=== PATIENT | female | born 1995 | race Caucasian/White ===

== ENCOUNTER 2021-04-13 10:02 | Outpatient (RCR) | payer OTHER, SELFPAY ==
[2021-04-13 11:08] VITALS: BP 123/82; PULSE 82
== END 2021-04-19 11:47 | disposition home or self-care (01) ==
LOC: ANHOBOP 10:02
PROVIDERS: Visit Provider Obstetrics & Gynecology
DX: O26.893 Other specified pregnancy related conditions, third trimester (principal); R03.0 Elevated blood-pressure reading, without diagnosis of hypertension; Z3A.39 39 weeks gestation of pregnancy
CPT/HCPCS: 59025

== ENCOUNTER 2021-04-14 07:25 | Inpatient (IN) | payer OTHER, SELFPAY ==
[2021-04-14] VITALS (173 sets, daily range): BP systolic 53–146; BP diastolic 27–99; PULSE 25–183; RESP 20; TEMP 36.3–36.8; O2SAT 78–100; BMI 32.6
--- NOTE | 2021-04-14 07:52 | PM.IMHP ---
H&P: HPI History of Present Illness Date/Time: 04/14/21 07:52 25-year-old 1 para 0 whose last menstrual period was 07/17/2020, EDC is 04/20/2021, confirmed by 10 week ultrasound presents at term in active labor. She is negative for group B strep in her has been uncomplicated. Active labor is noted Chief Complaint: labor Review of Systems Review of Systems: All systems reviewed & are unremarkable except as noted in HPI and below PMFSH Family History Family History Grandparent MDS (myelodysplastic syndrome) FHx: bowel obstruction Hypertension Cerebrovascular accident Father FHx: bowel obstruction Mother Deficiency of other vitamins Deficiency of other specified B group vitamins Anemia Social History Social History Substance use: never Spiritual care concerns: No Meds Home Medications and Allergies Home Medications Medication Instructions Recorded Confirmed Type prenat.vits,coleen,cil-ntii-grkbo 1 tablet PO DAILY 03/21/21 03/21/21 History [ #2] Allergies Allergy/AdvReac Type Severity Reaction Status Date / Time No Known Allergies Allergy Verified 03/21/21 14:37 Exam Const: General: no acute distress Eyes: General: appearance normal, both eyes and all related structures Neck: Neck: supple and no JVD Thyroid: thyroid normal Resp: Effort & Inspection: normal respiratory effort Auscultation: clear to auscultation bilaterally Cardio: Rate: regular rate Rhythm: regular rhythm GI: Inspection: non-distended GI Palp: Yes Soft to palpation, No Tenderness to palpation present (GI) and No Guarding due to palpation present (GI) Auscultation: normal bowel sounds : External Female Exam: normal external appearance Speculum Exam - Vagina: normal appearance of the vagina Speculum Exam - Cervix: normal appearance of the cervix ( cervix 5/90/1. AROM clear. FHTs reassuring.) Skin: General skin exam: no rashes or lesions noted Extrem: General: normal to inspection and no edema Psych: Mental Status: mental status grossly normal Affect: normal affect Assessment and Plan Additional Plan Impression: Term in active labor Plan: Spontaneous vaginal delivery is expected. She has an epidural candidate.
[2021-04-14 08:16] LABS: Basophils Percent Auto 0.2 % (0.2-1.2); Eosinophils Percent Auto 0.2 % (0-4.4); Hematocrit 34.5 % (37.0-47.0); Hemoglobin 10.9 g/dL (12.0-15.0); Immature Granulocyte Absolute 0.06 K/mm3 (0.00-0.031); Immature Granulocyte Percent A 0.6 % (0-0.5); Lymphocytes Absolute Auto 1.65 K/mm3 (0.9-3.2); Lymphocytes Percent Auto 17.3 % (18.3-44.2); Mean Corpuscular HGB Conc 31.6 g/dl (32-36); Mean Corpuscular Hemoglobin 28.5 pg (26-34); Mean Corpuscular Volume 90.1 fl (80-100); Mean Platelet Volume 10.1 fl (7.4-10.4); Monocytes Absolute Auto 0.6 K/mm3 (0.1-0.6); Neutrophils Absolute Auto 7.2 K/mm3 (1.3-6.7); Neutrophils Percent Auto 75.7 % (45.5-73.1); Platelet Count Result 240 k/mm3 (150-375); Red Blood Count 3.83 M/mm3 (4.2-5.4); Red Cell Distribution Width 13.5 % (11.5-14.5); White Blood Count 9.5 K/mm3 (4.5-10.0)
[2021-04-14] MEDS: LACTATED RINGERS 1,000 ML 125 ML IV CONT ×3 (08:27→12:06)
--- NOTE | 2021-04-14 09:00 | WPDANESEPP ---
Anes - Eval Pre Procedure Procedure: labor epidural Date/Time: 04/14/21 09:00 Surgeon: radha Preop Diagnosis: pain during labor Pre Op Diagnosis: contractions Patient Data Age: 25 Gender: F Height: 1.73 m Weight: 97.5 kg Last Vital Signs Pulse 92 04/14/21 08:30 BP 136/85 04/14/21 08:30 Allergies Allergy/AdvReac Type Severity Reaction Status Date / Time No Known Allergies Allergy Verified 03/21/21 14:37 Home Medications Medication Instructions Recorded Confirmed Type prenat.vits,coleen,pkf-angz-mpahb 1 tablet PO DAILY 03/21/21 03/21/21 History [ #2] Laboratory Tests 04/14/21 04/14/21 08:08 08:08 WBC 9.5 K/mm3 K/mm3 (4.5-10.0) RBC 3.83 M/mm3 L M/mm3 (4.2-5.4) Hgb 10.9 g/dL L g/dL (12.0-15.0) Hct 34.5 % L % (37.0-47.0) MCV 90.1 fl fl (80-100) MCH 28.5 pg pg (26-34) MCHC 31.6 g/dl L g/dl (32-36) RDW 13.5 % % (11.5-14.5) Plt Count 240 k/mm3 k/mm3 (150-375) MPV 10.1 fl fl (7.4-10.4) Immature Gran % (Auto) 0.6 % H % (0-0.5) Neut % (Auto) 75.7 % H % (45.5-73.1) Lymph % (Auto) 17.3 % L % (18.3-44.2) [place] % (Auto) 6.0 % % (2.6-8.5) Eos % (Auto) 0.2 % % (0-4.4) Baso % (Auto) 0.2 % % (0.2-1.2) Lymph # (Auto) 1.65 K/mm3 K/mm3 (0.9-3.2) [place] # (Auto) 0.6 K/mm3 K/mm3 (0.1-0.6) Eos # (Auto) 0.0 K/mm3 K/mm3 (0-0.3) Baso # (Auto) 0.0 K/mm3 K/mm3 (0.0-0.1) Abs Immat Gran (auto) 0.06 K/mm3 H K/mm3 (0.00-0.031) Absolute Neuts (auto) 7.2 K/mm3 H K/mm3 (1.3-6.7) Absolute Nucleated RBC 0.0 K/mm3 K/mm3 (0.0-0.012) Nucleated RBC % 0.0 % % (0.0-0.2) RPR Pending Patient hx anesthesia problems: none Family hx anesthesia problems: none PMFSH Past Medical History Medical History (Updated 04/14/21 @ 09:01 by Lucia Cee CRNA) IUP (intrauterine ), incidental Family History Family History Grandparent MDS (myelodysplastic syndrome) FHx: bowel obstruction Hypertension Cerebrovascular accident Father FHx: bowel obstruction Mother Deficiency of other vitamins Deficiency of other specified B group vitamins Anemia Social History Social History Substance use: never Spiritual care concerns: No Exam Day of Procedure 04/14/21 09:00
--- NOTE | 2021-04-14 09:00 | LDADM ---
This patient, Jason Russell, was admitted to Labor/Delivery/Recovery 105 on 04/14/21 at 07:25. Plans for labor, pain management and were discussed with patient. Patient/family oriented to hospital policies and general routines including ID bracelet, bed and alarms, visiting hours, pain management, procedures, bathroom and other care routines, personal items, smoking policy, room service/diet and guest tray routines, infant security routines, and visiting hours. Patient/Family are encouraged to report perceived risks to care and to ask questions if they do not understand what they are told or what they should do. See OBIX for further documentation.
--- NOTE | 2021-04-14 11:29 | PM.OBPNVD ---
OB - PN: Subj Subjective Date/time seen: 04/14/21 11:29 rn exam 6.5/fhts ok OB - PN: Obj Data Labs CBC & Chem 7: 04/14/21 08:08 Labs: Laboratory Results - last 24 hr 04/14/21 04/14/21 08:08 08:08 WBC 9.5 RBC 3.83 L Hgb 10.9 L Hct 34.5 L MCV 90.1 MCH 28.5 MCHC 31.6 L RDW 13.5 Plt Count 240 MPV 10.1 Immature Gran % (Auto) 0.6 H Neut % (Auto) 75.7 H Lymph % (Auto) 17.3 L [place] % (Auto) 6.0 Eos % (Auto) 0.2 Baso % (Auto) 0.2 Lymph # (Auto) 1.65 [place] # (Auto) 0.6 Eos # (Auto) 0.0 Baso # (Auto) 0.0 Abs Immat Gran (auto) 0.06 H Absolute Neuts (auto) 7.2 H Absolute Nucleated RBC 0.0 Nucleated RBC % 0.0 Blood Type A Positive Antibody Screen Negative OB - PN A/P Time Spent With Patient Time: Total time spent is greater than 50% in coordination of care (as documented) at patient's floor/unit and/or counseling patient:
[2021-04-14] MEDS: OXYTOCIN 30 UNITS/NS 500 ML 30 UNITS/500 ML BAG IV CONT (12:07)
--- NOTE | 2021-04-14 15:50 | P.PNOB_ITS ---
OB - PN: Subj Subjective Date/time seen: 04/14/21 15:50 Interval history: cx 9 fhts reassuring OB - PN: Obj Data Labs CBC & Chem 7: 04/14/21 08:08 Labs: Laboratory Results - last 24 hr 04/14/21 04/14/21 08:08 08:08 WBC 9.5 RBC 3.83 L Hgb 10.9 L Hct 34.5 L MCV 90.1 MCH 28.5 MCHC 31.6 L RDW 13.5 Plt Count 240 MPV 10.1 Immature Gran % (Auto) 0.6 H Neut % (Auto) 75.7 H Lymph % (Auto) 17.3 L [place] % (Auto) 6.0 Eos % (Auto) 0.2 Baso % (Auto) 0.2 Lymph # (Auto) 1.65 [place] # (Auto) 0.6 Eos # (Auto) 0.0 Baso # (Auto) 0.0 Abs Immat Gran (auto) 0.06 H Absolute Neuts (auto) 7.2 H Absolute Nucleated RBC 0.0 Nucleated RBC % 0.0 Blood Type A Positive Antibody Screen Negative OB - PN A/P Time Spent With Patient Time: Total time spent is greater than 50% in coordination of care (as documented) at patient's floor/unit and/or counseling patient:
--- NOTE | 2021-04-14 17:44 | PM.OBPRVD ---
OB - Delivery Note Procedure Delivery date: 04/14/21 Intrapartal events: None Induction method: AROM Delivery augmentation: pitocin Delivery monitor: external FHT Route of delivery: Episiotomy description: None Laceration Description: Perineal - 2nd Degree Delivery repair: vicryl Specimen: No Quantitative Blood Loss (ml): 58 Anesthesia type: Epidural Disposition: floor Baby Date of : 04/14/21 Time of : 17:32 Weeks of gestation at delivery: 40 Weight (pounds): 8 Weight (ounces): 13 presentation: vertex position: Right Occiput Anterior Placenta delivery description: Spontaneous cord vessel description: 3 Vessels score one minute: 8 score five minutes: 9
[2021-04-14] MEDS: OXYTOCIN 30 UNITS/NS 500 ML 30 UNITS/500 ML BAG 125 UNITS IV CONT (18:08)
[2021-04-14] MEDS: IBUPROFEN 600 MG TABLET PO (20:02)
[2021-04-14] MEDS: BENZOCAINE 20% AER SPR (*SP) 56 GM CAN 1 SPRAY TOPICAL (20:03)
[2021-04-14] MEDS: WITCH HAZEL 40 PADS 1 PAD TOPICAL (20:03)
--- NOTE | 2021-04-14 21:53 | OBPPTRN ---
Patient transferred to post room # via ( ). Support person present. Oriented to unit, room, information board, rooming in, admission packet and security measures. Patient verbalizes understanding.
[2021-04-15 00:30] VITALS: BP 119/69; PULSE 81; RESP 20; TEMP 36.7; O2SAT 100; O2SAT 99
[2021-04-15 04:30] VITALS: BP 124/77; PULSE 69; RESP 20; TEMP 36.7; O2SAT 100
[2021-04-15] MEDS: IBUPROFEN 600 MG TABLET PO ×3 (04:37→17:16)
[2021-04-15] MEDS: LANOLIN (LANSINOH) 7.5 GM CREAM 1 APPLIC TOPICAL ×2 (04:42→09:32)
[2021-04-15 05:46] LABS: Hematocrit 28.3 % (37.0-47.0)
--- NOTE | 2021-04-15 06:35 | P.PNOB_ITS ---
OB - PN: Subj Subjective Date/time seen: 04/15/21 06:35 Interval history: cx 9 fhts reassuring Patient comments: no complaints and pain well controlled [place] baby status: doing well and nursing well OB - PN: Obj Data Labs CBC & Chem 7: 04/15/21 04:36 Labs: Laboratory Results - last 24 hr 04/14/21 04/14/21 04/15/21 08:08 08:08 04:36 WBC 9.5 RBC 3.83 L Hgb 10.9 L 9.0 L Hct 34.5 L 28.3 L MCV 90.1 MCH 28.5 MCHC 31.6 L RDW 13.5 Plt Count 240 MPV 10.1 Immature Gran % (Auto) 0.6 H Neut % (Auto) 75.7 H Lymph % (Auto) 17.3 L [place] % (Auto) 6.0 Eos % (Auto) 0.2 Baso % (Auto) 0.2 Lymph # (Auto) 1.65 [place] # (Auto) 0.6 Eos # (Auto) 0.0 Baso # (Auto) 0.0 Abs Immat Gran (auto) 0.06 H Absolute Neuts (auto) 7.2 H Absolute Nucleated RBC 0.0 Nucleated RBC % 0.0 Blood Type A Positive Antibody Screen Negative OB - PN A/P Plan day: 1 Plan: routine care Time Spent With Patient Time: Total time spent is greater than 50% in coordination of care (as documented) at patient's floor/unit and/or counseling patient: Time with patient: less than 15 minutes Review of Systems Review of Systems: All systems reviewed & are unremarkable except as noted in HPI and below Exam Const: General: no acute distress Eyes: General: appearance normal, both eyes and all related structures Neck: Neck: supple and no JVD Thyroid: thyroid normal Resp: Effort & Inspection: normal respiratory effort Auscultation: clear to auscultation bilaterally Cardio: Rate: regular rate Rhythm: regular rhythm GI: Inspection: non-distended GI Palp: Yes Soft to palpation, No Tenderness to palpation present (GI) and No Guarding due to palpation present (GI) Auscultation: normal bowel sounds : General: Yes bladder normal to palpation External Female Exam: normal external appearance Speculum Exam - Vagina: normal vaginal discharge and No vaginal bleeding Speculum Exam - Cervix: nontender Bimanual exam- vagina & uterus: bladder normal to palpation and No Cervical tenderness present OB/external & speculum: No vaginal bleeding Skin: General skin exam: no rashes or lesions noted Extrem: General: normal to inspection and no edema Psych: Mental Status: mental status grossly normal Affect: normal affect
[2021-04-15 06:46] LABS: Rapid Plasma Reagin Non-Reactive (NonReactive)
[2021-04-15 08:00] VITALS: BP 131/84; PULSE 63; RESP 18; TEMP 36.2; O2SAT 100
--- NOTE | 2021-04-15 09:30 | PC.NURSE ---
RN requested assist with feeding. Consulted with patient, mother reports has been sleepy at breast. Mother has been reporting 20 minutes for some feedings, when asked was at breast 20 minutes with maybe 10 minutes of nursing. Reviewed infant feeding cues, frequencies, duration of feedings, feeding elimination flow sheet, and signs of adequate intake. Demonstrated stimulation techniques to wake for feeding. Assisted with to breast. Reviewed positioning/alignment in football, holding breast in ?C? hold and guided asymmetrical latch on. Infant was unable latch correctly. Several attempts made. Offered and explained nipple shield, mother would like to attempt with shield. Instructions given on application and cleaning of shield. Discussed nipple shield precautions and possible complications. Patient able to return demonstration on proper application of shield. Discussed the need to initiate pumping if continues to nurse with the shield. Patient verbalizes understanding. With shield in place infant was able to latch correctly. He remained sleepy with bursts of weak suckling noted. Reviewed effective nursing vs ineffective nursing. Discussed this feeding was not effective nursing. Mother states infant has mostly nurse this way since . Primary RN is comfortable with blood glucose and waiting for next feeding to see if infant will wake. Reviewed if does not have an effective feeding, mother should initiate pumping to stimulate milk supply and should receive supplementation of 15-20 mls. Instructed feeding should be initiated three hours from start of last feeding or if feeding cues are noted before. Mother voiced understanding of information shared.
[2021-04-15] MEDS: MULTIVIT/MIN/PREN/FOL AC/IRON TABLET 1 TAB PO (09:31)
[2021-04-15] MEDS: DOCUSATE SODIUM 100 MG CAPSULE PO ×2 (09:32→17:17)
[2021-04-15] MEDS: POLYSACCHARIDE IRON COMPLEX 150 MG CAPSULE PO ×2 (09:32→17:17)
--- NOTE | 2021-04-15 09:49 | WPDANLDPN2 ---
Anes-Prog Note L&D Date/Time: 04/15/21 09:49 Comfortable throughout: labor and delivery Neuraxial method: epidural Epidural/Spinal procedure site: clean & non-tender Neuro status: Neuro function grossly intact. Cardiovascular status: normal Respiratory status: normal Airway patency: baseline Mental status: baseline Post-Op hydration status: normal Vital Signs: Last Vital Signs Temp 36.7 C 04/15/21 04:30 Pulse 69 04/15/21 04:30 Resp 20 04/15/21 04:30 BP 124/77 04/15/21 04:30 Pulse Ox 100 04/15/21 04:30 Pain score (VAS): 11/28 I/O: Intake & Output 04/14/21 04/15/21 04/15/21 23:59 07:59 15:59 Intake Total 500 800 Output Total 126 Balance 374 800 Post-procedural complaints: none Patient feedback: Patient satisfied with anesthetic care.
--- NOTE | 2021-04-15 12:00 | PC.NURSE ---
Mother called out for assist with feeding. Demonstrated stimulation techniques to wake for feeding remains sleepy. Assisted with to breast. Reviewed positioning/alignment in football, holding breast in ?C? hold and guided asymmetrical latch on. Infant attempted first without shield, infant unable to latch correctly. With shield in place, was able to latch and had a few good bursts of suckling noted. Attempt for 15 minutes. Parents will supplement 15-20 mls.
--- NOTE | 2021-04-15 12:20 | PC.NURSE ---
Breast pump provided due to ineffective feeding and nipple shield use. Instructions given on breast pump care and usage, pumping schedule, nipple care, and collection and storage of breast milk. Encouraged [id number], breast massage and manual expression to stimulate supply. Assessed patient for correct flange size, placement and draw. Patient verbalizes and demonstrates understanding of instructions.
[2021-04-15 17:00] VITALS: BP 126/78; PULSE 77; RESP 18; TEMP 36.8; O2SAT 100
[2021-04-15 19:00] VITALS: BP 117/77; PULSE 82; RESP 18; RESP 20; TEMP 37; O2SAT 100; O2SAT 99
--- NOTE | 2021-04-16 07:06 | PM.DS ---
DS: Admitting Diagnosis Admitting Diagnosis Admitting Diagnosis: term iup DS: Summary Hospital Course Hospital Course: The patient was admitted in active labor. She underwent spontaneous vaginal delivery of a male infant which was unremarkable. Her 48hour course was unremarkable. She remained afebrile. She was up, voiding without difficulty, breast-feeding, ambulating, eating regular diet, and generally without complaints. Time Spent with Patient Time attestation: Total time spent providing and/or coordinating discharge services: Exam Const: General: no acute distress Eyes: General: appearance normal, both eyes and all related structures Neck: Neck: supple and no JVD Thyroid: thyroid normal Resp: Effort & Inspection: normal respiratory effort Auscultation: clear to auscultation bilaterally Cardio: Rate: regular rate Rhythm: regular rhythm GI: Inspection: non-distended GI Palp: Yes Soft to palpation, No Tenderness to palpation present (GI) and No Guarding due to palpation present (GI) Auscultation: normal bowel sounds : General: Yes bladder normal to palpation External Female Exam: normal external appearance Speculum Exam - Vagina: normal vaginal discharge and No vaginal bleeding Speculum Exam - Cervix: nontender Bimanual exam- vagina & uterus: bladder normal to palpation and No Cervical tenderness present OB/external & speculum: No vaginal bleeding Skin: General skin exam: no rashes or lesions noted Extrem: General: normal to inspection and no edema Psych: Mental Status: mental status grossly normal Affect: normal affect Discharge Plan Discharge Attending physician on discharge: Rodney Comer Discharging Clinician: Rodney Comer Patient Disposition: Home, Self-Care Activity: may shower, no straining and pelvic rest Diet: heart healthy Wound Care Instructions: follow printed instructions Patient Instructions: Antibiotic Form Stand Alone Forms: General Discharge Information Follow-up/Referrals: Rodney Comer MD [Physician] - Discharge Medications: Continued #2 Tablet 1 tablet PO DAILY RF: 0 Date of admission: 04/14/21 07:25 Primary Care Provider: PHYSICIAN,BUILDING CONSTRUCTION TEACHER Admitting Provider: Rodney Comer Attending physician on admission: Rodney Comer Condition: Stable
--- NOTE | 2021-04-16 07:08 | PM.OBPNVD ---
OB - PN: Subj Subjective Date/time seen: 04/16/21 07:08 Interval history: cx 9 fhts reassuring Patient comments: no complaints and pain well controlled [place] baby status: doing well and nursing well OB - PN: Obj Data Labs CBC & Chem 7: 04/15/21 04:36 OB - PN A/P Plan day: 2 Plan: routine care, discharge home and follow up 6 weeks Time Spent With Patient Time: Total time spent is greater than 50% in coordination of care (as documented) at patient's floor/unit and/or counseling patient: Time with patient: less than 15 minutes Review of Systems Review of Systems: All systems reviewed & are unremarkable except as noted in HPI and below
[2021-04-16 08:00] VITALS: BP 123/83; PULSE 76; RESP 18; TEMP 36.6
[2021-04-16] MEDS: MULTIVIT/MIN/PREN/FOL AC/IRON TABLET 1 TAB PO (08:12)
[2021-04-16] MEDS: DOCUSATE SODIUM 100 MG CAPSULE PO (08:12)
[2021-04-16] MEDS: IBUPROFEN 600 MG TABLET PO (08:12)
[2021-04-16] MEDS: POLYSACCHARIDE IRON COMPLEX 150 MG CAPSULE PO (08:12)
[2021-04-16] MEDS: LANOLIN (LANSINOH) 7.5 GM CREAM 1 APPLIC TOPICAL (08:12)
[2021-04-16] MEDS: WITCH HAZEL 40 PADS 1 PAD TOPICAL (08:12)
[2021-04-16] MEDS: BENZOCAINE 20% AER SPR (*SP) 56 GM CAN 1 SPRAY TOPICAL (08:12)
--- NOTE | 2021-04-16 13:00 | PC.NURSE ---
Patient viewed the discharge video Mother & Baby Care, The First Two Weeks . Patient was given the opportunity and encouraged to ask questions. Patient verbalized understanding of information shared and has been given the mother/baby guide for home reference.
--- NOTE | 2021-04-16 14:15 | PC.NURSE ---
Self care and infant care discharge instructions given including follow up visit date and time. Pt. verbalized understanding. No questions or concerns voiced. Very pleasant. at side.
[2021-04-16] MEDS: ACETAMINOPHEN 325 MG TABLET 650 MG PO (14:33)
[2021-04-18 15:33] VITALS: BP 121/83; PULSE 86; RESP 20; TEMP 36.6; O2SAT 100
== END 2021-04-16 14:35 | disposition home or self-care (01) | DRG 807 ==
LOC: ANHLDR 07:48 → ANHOB2 22:54
PROVIDERS: Admitting Provider Obstetrics & Gynecology; Visit Provider Obstetrics & Gynecology
DX: O76 Abnormality in fetal heart rate and rhythm complicating labor and delivery (principal); Z37.0 Single live birth; O70.1 Second degree perineal laceration during delivery; Z3A.40 40 weeks gestation of pregnancy
CPT/HCPCS: 36415; 59025; 85014; 85018; 85025; 86592; 86850; 86900; 86901; A9270; J2590; J2795; J7120

== ENCOUNTER 2023-07-13 15:13 | Observation (INO) | payer BC, SELFPAY ==
[2023-07-13 15:13] VITALS: BMI 32.0
[2023-07-13 16:01] VITALS: BP 122/79; PULSE 93
[2023-07-13 16:16] VITALS: BP 116/70; PULSE 84
--- NOTE | 2023-07-17 07:10 | PM.OBTRLD ---
OB - Triage/Final Diagnosis Visit Information Reason for evaluation: threatened labor Comments/Additional reasons for admission: I have assessed the risk for this patient, Jason Vides , and determined that she would benefit from observation care.
== END 2023-07-13 16:43 | disposition home or self-care (01) ==
PROVIDERS: Admitting Provider Obstetrics & Gynecology; PCP Family Medicine; Visit Provider Obstetrics & Gynecology
DX: O47.03 False labor before 37 completed weeks of gestation, third trimester (principal); Z3A.34 34 weeks gestation of pregnancy
CPT/HCPCS: G0378; G0379

== ENCOUNTER 2023-08-18 14:57 | Observation (INO) | payer BC, SELFPAY ==
[2023-08-18 14:57] VITALS: BMI 34.5
--- NOTE | 2023-08-18 16:40 | OBADM ---
This patient, Jason Russell, admitted to the OB room Labor/Delivery/Recovery 107 for observation. Patient/family oriented to hospital policies and general routines including ID bracelet, bed and alarms, visiting hours, pain management, procedures, bathroom and other care routines, personal items, smoking policy, room service/diet, and visiting hours. Patient/Family are encouraged to report perceived risks to care and to ask questions if they do not understand what they are told or what they should do.
--- NOTE | 2023-08-24 01:09 | PM.OBTRLD ---
OB - Triage/Final Diagnosis Visit Information Comments/Additional reasons for admission: I have assessed the risk for this patient, Jason Russell, and determined that she would benefit from observation care. Final Diagnosis (1) False labor: Code(s): O47.9 - False labor, unspecified Status: Acute
== END 2023-08-18 16:51 | disposition home or self-care (01) ==
PROVIDERS: Admitting Provider Obstetrics & Gynecology; PCP Family Medicine; Visit Provider Obstetrics & Gynecology
DX: O47.1 False labor at or after 37 completed weeks of gestation (principal); Z3A.40 40 weeks gestation of pregnancy
CPT/HCPCS: G0378; G0379

== ENCOUNTER 2023-08-20 11:26 | Inpatient (IN) | payer BC, SELFPAY ==
[2023-08-20] VITALS (111 sets, daily range): BP systolic 93–146; BP diastolic 53–100; PULSE 52–185; RESP 16; TEMP 36.2–37.2; O2SAT 85–100; BMI 34.5
--- NOTE | 2023-08-20 11:40 | P.HP_ITS ---
H&P: HPI History of Present Illness Date/Time: 08/20/23 11:40 Chief Complaint: Labor Narrative: 27-year-old 2 para 1 at 40 and 2 7th weeks gestation and labor. Negative for group B strep. Her has been uncomplicated. [facility] Past Medical History Medical History IUP (intrauterine ), incidental Family History Family History Grandparent MDS (myelodysplastic syndrome) FHx: bowel obstruction Hypertension Cerebrovascular accident Father FHx: bowel obstruction Mother Anemia Deficiency of other vitamins Deficiency of other specified B group vitamins Breast cancer Social History Social History Smoking status: Never smoker Substance use: never Spiritual care concerns: No Meds Home Medications and Allergies Home Medications Medication Instructions Recorded Confirmed Type prenat.vits,coleen,oge-exmt-sajoa 1 tablet PO DAILY 03/21/21 08/18/23 History Allergies Allergy/AdvReac Type Severity Reaction Status Date / Time No Known Allergies Allergy Verified 03/21/21 14:37 Exam Const: General: cooperative, healthy appearing and comfortable Nutritional Appearance: average body habitus Orientation/consciousness: oriented to person, oriented to place and oriented to time HENMT: Head: normal to inspection Resp: Effort & Inspection: normal respiratory effort Cardio: Rate: regular rate Rhythm: regular rhythm Heart sounds: S1 normal heart sound present and S2 normal heart sound present GI: Inspection: normal to inspection ( Gravid soft uterus) : External Female Exam: normal external appearance Speculum Exam - Vagina: normal appearance of the vagina Speculum Exam - Cervix: normal appearance of the cervix ( cervix /. FHTs) Assessment and Plan Assessment and plan (1) Term : Code(s): Z34.90 - Encounter for supervision of normal , unspecified, unspecified trimester Status: Acute Plan spontaneous vaginal delivery is expected. She is an epidural candidate
--- NOTE | 2023-08-20 11:47 | LDADM ---
This patient, Jason Russell, was admitted to Labor/Delivery/Recovery 105 on 08/20/23 at 11:26. Plans for labor, pain management and were discussed with patient. Patient/family oriented to hospital policies and general routines including ID bracelet, bed and alarms, visiting hours, pain management, procedures, bathroom and other care routines, personal items, smoking policy, room service/diet and guest tray routines, infant security routines, and visiting hours. Patient/Family are encouraged to report perceived risks to care and to ask questions if they do not understand what they are told or what they should do. See OBIX for further documentation.
[2023-08-20] MEDS: LACTATED RINGERS 1,000 ML 125 ML IV CONT ×2 (11:56→12:56)
[2023-08-20 11:58] LABS: Basophils Percent Auto 0.3 % (0.2-1.2); Eosinophils Percent Auto 0.2 % (0-4.4); Hematocrit 34.8 % (37.0-47.0); Hemoglobin 10.6 g/dL (12.0-15.0); Immature Granulocyte Absolute 0.07 K/mm3 (0.00-0.031); Immature Granulocyte Percent A 0.6 % (0-0.5); Lymphocytes Absolute Auto 1.62 K/mm3 (0.9-3.2); Lymphocytes Percent Auto 14.9 % (18.3-44.2); Mean Corpuscular HGB Conc 30.5 g/dl (32-36); Mean Corpuscular Hemoglobin 27.7 pg (26-34); Mean Corpuscular Volume 90.9 fl (80-100); Monocytes Absolute Auto 0.8 K/mm3 (0.1-0.6); Monocytes Percent Auto 7.1 % (2.6-8.5); Neutrophils Absolute Auto 8.3 K/mm3 (1.3-6.7); Neutrophils Percent Auto 76.9 % (45.5-73.1); Platelet Count Result 254 k/mm3 (150-375); Red Blood Count 3.83 M/mm3 (4.2-5.4); Red Cell Distribution Width 14.3 % (11.5-14.5); White Blood Count 10.8 K/mm3 (4.5-10.0)
[2023-08-20 13:36] LABS: Rapid Plasma Reagin Non-Reactive (NonReactive)
[2023-08-20] MEDS: OXYTOCIN 30 UNITS/NS 500 ML 30 UNITS/500 ML BAG IV CONT (14:38)
--- NOTE | 2023-08-20 14:47 | PC.NURSE ---
[id number] Introductions were made and mother shared how she would like to feed her baby with . RN invited any questions?and concerns that the family has at this time, and they were answered and discussed.?Encouraged continuous [id number] until the first feeding if infant is stable. Education given to wait on the weight keeping infant [id number] to help reduce stress and improve success with latching by allowing time to explore parent's chest. Prepared parent that it can take time with uninterrupted [id number] to become familiar with their new surroundings (the 9 instinctive stages after ). Education shared on how to protect the milk supply with latching , using hand expression to remove milk if doesn't latch in the first hour or if there is separation.? Reviewed hand expression to protect the milk supply if infant isn't latching the first hour. Demonstration and resources were given on how to hand express using tool and referred to QR code in bonding and feeding trifold. We discussed any additional questions and concerns. Parents voiced understanding of information, reviewed consultation availability and to call if there is a request for assistance. Labor RN aware of the LC introduction.
[2023-08-20 14:50] LABS: HIV 1/2 Ab P24 Ag Result Negative (Negative)
--- NOTE | 2023-08-20 16:30 | PM.OBPRVD ---
OB - Delivery Note Procedure Delivery date: 08/20/23 Induction method: None Delivery augmentation: Pitocin Delivery monitor: External FHT Route of delivery: Episiotomy description: None Laceration Description: Perineal - 1st Degree Delivery repair: vicryl Anesthesia type: Epidural Disposition: Floor [place] Baby Date of : 08/20/23 Time of : 16:19 Weeks of gestation at delivery: 40 gender: Male presentation: vertex position: Right Occiput Anterior Placenta delivery description: Spontaneous Cord Vessel Description: 3 Vessels, Nuchal Cord and Loose score one minute: 8 score five minutes: 8
[2023-08-20] MEDS: OXYTOCIN 30 UNITS/NS 500 ML 30 UNITS/500 ML BAG 125 UNITS IV CONT (16:50)
--- NOTE | 2023-08-20 22:44 | OBPPTRN ---
Patient transferred to post room #279 at 2018. Support person present. Oriented to unit, room, information board, rooming in, admission packet and security measures. Patient verbalizes understanding.
[2023-08-21 04:23] LABS: Hematocrit 30.2 % (37.0-47.0); Hemoglobin 9.3 g/dL (12.0-15.0)
[2023-08-21] MEDS: ACETAMINOPHEN 325 MG TABLET 650 MG PO (04:24)
--- NOTE | 2023-08-21 06:28 | PM.OBPNVD ---
OB - PN: Subj Subjective Date/time seen: 08/21/23 06:28 Patient comments: no complaints and pain well controlled baby status: doing well and nursing well OB - PN: Obj Data Labs 08/21/23 03:56 Labs: Laboratory Results - last 24 hr 08/20/23 08/20/23 08/21/23 11:53 13:31 03:56 WBC 10.8 H RBC 3.83 L Hgb 10.6 L 9.3 L Hct 34.8 L 30.2 L MCV 90.9 MCH 27.7 MCHC 30.5 L RDW 14.3 Plt Count 254 MPV 10.0 Immature Gran % (Auto) 0.6 H Neut % (Auto) 76.9 H Lymph % (Auto) 14.9 L [place] % (Auto) 7.1 Eos % (Auto) 0.2 Baso % (Auto) 0.3 Lymph # (Auto) 1.62 [place] # (Auto) 0.8 H Eos # (Auto) 0.0 Baso # (Auto) 0.0 Abs Immat Gran (auto) 0.07 H Absolute Neuts (auto) 8.3 H Absolute Nucleated RBC 0.0 Nucleated RBC % 0.0 RPR Non-reactive HIV 1&2 Ab/P24 Ag 4thGn Negative Blood Type A Positive Antibody Screen Negative OB - PN A/P Plan day: 1 Plan: routine care Time Spent With Patient Time: Total time spent is greater than 50% in coordination of care (as documented) at patient's floor/unit and/or counseling patient: Time with patient: less than 15 minutes Exam Const: General: cooperative, healthy appearing and comfortable Nutritional Appearance: average body habitus Orientation/consciousness: oriented to person, oriented to place and oriented to time HENMT: Head: normal to inspection Resp: Effort & Inspection: normal respiratory effort Cardio: Rate: regular rate Rhythm: regular rhythm Heart sounds: S1 normal heart sound present and S2 normal heart sound present GI: Inspection: normal to inspection
--- NOTE | 2023-08-21 06:29 | PM.DS ---
DS: Admitting Diagnosis Discharge Date Admitting Diagnosis term DS: Discharge Diagnosis Discharge Diagnosis (1) Term : Code(s): Z34.90 - Encounter for supervision of normal , unspecified, unspecified trimester Status: Acute DS: Summary Hospital Course Reason for hospitalization: patient was admitted in active labor at term Hospital Course: patient underwent spontaneous vaginal delivery on 08/20/2023. Hospital course was unremarkable. She remained afebrile. She was up, voiding without difficulty, ambulating, eating regular, generally complaints. She and baby well adjusted to each other Time Spent with Patient Time attestation: Total time spent providing and/or coordinating discharge services: Exam Const: General: cooperative, healthy appearing and comfortable Nutritional Appearance: average body habitus Orientation/consciousness: oriented to person, oriented to place and oriented to time HENMT: Head: normal to inspection Resp: Effort & Inspection: normal respiratory effort Cardio: Rate: regular rate Rhythm: regular rhythm Heart sounds: S1 normal heart sound present and S2 normal heart sound present GI: Inspection: normal to inspection ( fundus firm below umbilicus) DS: Data Data Completed and Pending Labs on day of discharge: Labs from last 24 hours 08/21/23 08/20/23 08/20/23 03:56 13:31 11:53 WBC 10.8 H RBC 3.83 L Hgb 9.3 L 10.6 L Hct 30.2 L 34.8 L MCV 90.9 MCH 27.7 MCHC 30.5 L RDW 14.3 Plt Count 254 MPV 10.0 Immature Gran % (Auto) 0.6 H Neut % (Auto) 76.9 H Lymph % (Auto) 14.9 L [place] % (Auto) 7.1 Eos % (Auto) 0.2 Baso % (Auto) 0.3 Lymph # (Auto) 1.62 [place] # (Auto) 0.8 H Eos # (Auto) 0.0 Baso # (Auto) 0.0 Abs Immat Gran (auto) 0.07 H Absolute Neuts (auto) 8.3 H Absolute Nucleated RBC 0.0 Nucleated RBC % 0.0 RPR Non-reactive HIV 1&2 Ab/P24 Ag 4thGn Negative Blood Type A Positive Antibody Screen Negative Discharge Plan Discharge Attending physician on discharge: Rodney Baird Discharging Clinician: Rodney Baird Patient Disposition: Home, Self-Care Activity: may shower and no straining Diet: heart healthy Patient Instructions: Antibiotic Form Stand Alone Forms: General Discharge Information Follow-up/Referrals: Rodney Baird MD [Physician] - Discharge Medications: No Action prenat.vits,coleen,piz-bslv-jxaeo Tablet 1 tablet PO DAILY Date of admission: 08/20/23 11:26 Primary Care Provider: Munir,Isaac Wilkerson Admitting Provider: Rodney Baird Attending physician on admission: Rodney Baird Condition: Stable
--- NOTE | 2023-08-21 06:40 | PM.OBPNVD ---
OB - PN: Subj Subjective Date/time seen: 08/21/23 06:40 Patient comments: no complaints and pain well controlled baby status: doing well and nursing well OB - PN: Obj Data Labs 08/21/23 03:56 Labs: Laboratory Results - last 24 hr 08/20/23 08/20/23 08/21/23 11:53 13:31 03:56 WBC 10.8 H RBC 3.83 L Hgb 10.6 L 9.3 L Hct 34.8 L 30.2 L MCV 90.9 MCH 27.7 MCHC 30.5 L RDW 14.3 Plt Count 254 MPV 10.0 Immature Gran % (Auto) 0.6 H Neut % (Auto) 76.9 H Lymph % (Auto) 14.9 L [place] % (Auto) 7.1 Eos % (Auto) 0.2 Baso % (Auto) 0.3 Lymph # (Auto) 1.62 [place] # (Auto) 0.8 H Eos # (Auto) 0.0 Baso # (Auto) 0.0 Abs Immat Gran (auto) 0.07 H Absolute Neuts (auto) 8.3 H Absolute Nucleated RBC 0.0 Nucleated RBC % 0.0 RPR Non-reactive HIV 1&2 Ab/P24 Ag 4thGn Negative Blood Type A Positive Antibody Screen Negative OB - PN A/P Plan day: 1 Plan: routine care Time Spent With Patient Time: Total time spent is greater than 50% in coordination of care (as documented) at patient's floor/unit and/or counseling patient: Time with patient: less than 15 minutes Exam Const: General: cooperative, healthy appearing and comfortable Nutritional Appearance: average body habitus Orientation/consciousness: oriented to person, oriented to place and oriented to time Resp: Effort & Inspection: normal respiratory effort Cardio: Rate: regular rate Rhythm: regular rhythm Heart sounds: S1 normal heart sound present and S2 normal heart sound present GI: Inspection: normal to inspection ( fundus firm below the umbilicus)
[2023-08-21 07:20] VITALS: BP 133/86; PULSE 64; RESP 16; TEMP 37.1; O2SAT 100
[2023-08-21] MEDS: DOCUSATE SODIUM 100 MG CAPSULE PO ×2 (08:36→16:33)
[2023-08-21] MEDS: MULTIVIT/MIN/PREN/FOL AC/IRON TABLET 1 TAB PO (08:36)
[2023-08-21] MEDS: IBUPROFEN 600 MG TABLET PO ×2 (08:37→16:33)
[2023-08-21] MEDS: POLYSACCHARIDE IRON COMPLEX 150 MG CAPSULE PO ×2 (08:38→16:33)
--- NOTE | 2023-08-21 10:41 | PC.NURSE ---
[id number] Purposefully rounded to assess needs. Mother has chosen to pump and feed without putting to breast. Mother states she pumped and bottle fed with her first child, therefore, this is her comfort zone. Instructions given on cleaning, care, usage, that there should be no pain, pumping schedule for milk production, collection, and storage of human milk. Parents are encouraged to record pumping schedule on the feeding sheet. Discussed calling for an assessment for the flange size, there is to be no pain, reviewed handout Choosing your personal fit breastshield size , to pump for comfort and nipple stretching/stimulation for adequate milk production every 3 hours (8 times in 24 hours) 1-2 times at night. Mother voiced understanding of the education shared along with mom and baby guide for additional resource information. Reported to the primary RN.
[2023-08-21 11:58] VITALS: BP 127/77; PULSE 73; RESP 16; TEMP 36.5; O2SAT 100
--- NOTE | 2023-08-21 12:00 | PC.NURSE ---
Patient to view the discharge video Mother & Baby Care, The First Two Weeks online. Patient was given the opportunity and encouraged to ask questions. Patient verbalized understanding of information shared and has been given the mother/baby guide for home reference.
--- NOTE | 2023-08-21 12:40 | WPDANLDPN2 ---
Anes-Prog Note L&D Date/Time: 08/21/23 12:40 Comfortable throughout: labor and delivery Neuraxial method: epidural Epidural/Spinal procedure site: clean & non-tender Neuro status: Neuro function grossly intact. Cardiovascular status: normal Respiratory status: normal Airway patency: baseline Mental status: baseline Post-Op hydration status: normal Vital Signs: Last Vital Signs Temp 97.7 F 08/21/23 11:58 Pulse 73 08/21/23 11:58 Resp 16 08/21/23 11:58 BP 127/77 08/21/23 11:58 Pulse Ox 100 08/21/23 11:58 O2 Del Method Room Air 08/20/23 11:45 Pain score (VAS): 0 I/O: Intake & Output 08/20/23 08/21/23 08/21/23 23:59 07:59 15:59 Output Total 60 Balance -60 Post-procedural complaints: none Patient feedback: Patient satisfied with anesthetic care.
--- NOTE | 2023-08-21 18:03 | PC.NURSE ---
Ricardo Medellin RN, has looked over and agrees with the charting that Hiral Ramos RN License pending, has completed.
[2023-08-22 11:25] VITALS: BP 137/83; PULSE 87; RESP 18; TEMP 36.4; O2SAT 100
== END 2023-08-21 18:03 | disposition home or self-care (01) | DRG 807 ==
LOC: ANHLDR 11:31 → ANHOB2 20:23
PROVIDERS: Admitting Provider Obstetrics & Gynecology; PCP Family Medicine; Visit Provider Obstetrics & Gynecology
DX: O69.81X0 Labor and delivery complicated by cord around neck, without compression, not applicable or unspecified (principal); Z37.0 Single live birth; Z3A.40 40 weeks gestation of pregnancy; O70.0 First degree perineal laceration during delivery; O77.0 Labor and delivery complicated by meconium in amniotic fluid; Z23 Encounter for immunization
CPT/HCPCS: 36415; 85014; 85018; 85025; 86592; 86703; 86850; 86900; 86901; 90471; 90686; A9270; G0008; G0432; J2590; J2795; J7120

== ENCOUNTER 2024-04-03 09:04 | Outpatient (CLI) | payer BC, SELFPAY ==
--- NOTE | ~2024-04-03 | MM_ITS ---
EXAMINATION: MM screening [facility] BI w yodit HISTORY: Screening mammogram TECHNIQUE: Craniocaudal and mediolateral oblique 3-D tomosynthesis images were obtained and synthetic 2-D images were generated. CAD analysis was submitted and interpreted. COMPARISON: No prior mammogram is available for comparison at this institution. BREAST PARENCHYMAL COMPOSITION: Baseline examination. There are scattered areas of fibroglandular den sity. FINDINGS: There is no evidence of suspicious mass, calcification, or architectural distortion to sugg est malignancy in either breast. IMPRESSION: 1. No mammographic evidence of malignancy. 2. Recommend routine screening mammography in one year. BI-RADS Category 1: Negative Reviewed, dictated and finalized at location B.
== END 2024-04-03 09:05 | disposition home or self-care (01) ==
LOC: ANHIMG 09:06
PROVIDERS: PCP Family Medicine; Visit Provider Obstetrics & Gynecology
DX: Z12.31 Encounter for screening mammogram for malignant neoplasm of breast (principal)
CPT/HCPCS: 77063; 77067

== ENCOUNTER 2025-07-24 16:16 | Outpatient (CLI) | payer BC, SELFPAY ==
--- NOTE | ~2025-07-24 | MM_ITS ---
EXAMINATION: MM screening leona BI w yodit HISTORY: Screening TECHNIQUE: Craniocaudal and mediolateral oblique 3-D tomosynthesis images were obtained and synthetic 2-D images were generated. CAD analysis was submitted and interpreted. COMPARISON: Mammogram 04/03/2024 BREAST PARENCHYMAL COMPOSITION: The breasts are heterogeneously dense, which may obscure small masses. FINDINGS: There is no evidence of suspicious mass, calcification, or architectural distortion in either breast to suggest malignancy. There has been no significant interval change. IMPRESSION: 1. No mammographic evidence of malignancy. Recommend routine screening mammography in one year. BI-RADS Category 1: Negative Reviewed, dictated and finalized at location Q. IMPRESSION: 1. No mammographic evidence of malignancy. Recommend routine screening mammogra phy in one year. BI-RADS Category 1: Negative
== END 2025-07-24 16:17 | disposition home or self-care (01) ==
LOC: ANHFOHIMG 16:27
PROVIDERS: PCP Family Medicine; Visit Provider Obstetrics & Gynecology
DX: Z12.31 Encounter for screening mammogram for malignant neoplasm of breast (principal)
CPT/HCPCS: 77063; 77067